=== PATIENT | female | born 1950 | race Caucasian/White ===

== ENCOUNTER 2016-04-27 14:05 | Emergency (ER) | payer MEDICARE, OTHER ==
[~2016-04-27] VITALS: Ht 172.7 cm; Wt 73.5 kg
[~2016-04-27 14:05] MED LIST: DIAZ2TAB
[2016-04-27] MEDS ORDERED: BECL8.7A6 IH (14:22)
[2016-04-27] MEDS ORDERED: ALBU8.5H2 IH (14:22)
--- NOTE | 2016-04-27 16:20 | NUR ---
PT BIB SELF C/O SOB X1 WEEK. STATES "IT FEELS LIKE BRONCHITIS OR STREP" AND "I CAN'T CATCH MY BREATH". RESP EVEN UNLABORED. NAD NOTED. O2 SAT 98% ON RA. SKIN WARM NONDIAPHORETIC. AMBULATORY WITH STEADY GAIT.
[2016-04-27] MEDS ORDERED: IPRATROPIUM NEB FS 0.5 MG/2.5 ML AMPUL.NEB ONE (17:52)
[2016-04-27] MEDS ORDERED: ALBUTEROL FS 2.5 MG/3 ML VIAL.NEB ONE ×2 (17:52→18:41)
[2016-04-27] MEDS ORDERED: predniSONE 20 MG TABLET PO ONE (18:00)
[2016-04-27] MEDS ORDERED: IPRATROPIUM NEB FS 0.5 MG/2.5 ML AMPUL.NEB NEB ONE (18:00)
[2016-04-27] MEDS ORDERED: ALBUTEROL FS 2.5 MG/3 ML VIAL.NEB CONTNEB ONE (18:00)
[2016-04-27] MEDS ORDERED: predniSONE 20 MG TABLET ONE (18:06)
--- NOTE | 2016-04-27 18:13 | NUR ---
BREATHING TX ONGOING. NAD NOTED.
--- NOTE | 2016-04-27 18:58 | NUR ---
PT. VERBALIZED UNDERSTANDING OF AFTERCARE INSTRUCTIONS.Patient discharged to home in stable condition. Written and verbal after care instructions given. Patient verbalizes understanding of instruction.
[2016-04-27 18:59] VITALS: BP 112/94
[2016-04-27] MEDS ORDERED: ALBUTEROL FS 2.5 MG/3 ML VIAL.NEB NEB ONE (19:00)
== END 2016-04-27 19:03 | disposition home or self-care (01) ==
LOC: ER 14:09
DX: J45.901 Unspecified asthma with (acute) exacerbation (principal); J06.9 Acute upper respiratory infection, unspecified; J44.1 Chronic obstructive pulmonary disease with (acute) exacerbation; G62.9 Polyneuropathy, unspecified; F41.9 Anxiety disorder, unspecified
CPT/HCPCS: 71020; 94640 ×3; 99285; A4606; J7512 ×2; Z7610

== ENCOUNTER 2016-05-12 17:11 | Emergency (ER) | payer MEDICARE, OTHER ==
[~2016-05-12] VITALS: Ht 172.7 cm; Wt 70.3 kg
[2016-05-12 17:11] VITALS: BP 121/68
[~2016-05-12 17:11] MED LIST changes: +ALBU8.5H2 IH; +BECL8.7A6 IH
[2016-05-12] MEDS ORDERED: DIAZEPAM 5 MG TABLET ONE (17:55)
[2016-05-12] MEDS ORDERED: DIAZEPAM 10 MG TABLET PO ONE (18:00)
== END 2016-05-12 18:33 | disposition home or self-care (01) ==
LOC: ER 17:13
DX: Z76.0 Encounter for issue of repeat prescription (principal); G40.909 Epilepsy, unspecified, not intractable, without status epilepticus; J45.909 Unspecified asthma, uncomplicated; F10.20 Alcohol dependence, uncomplicated
CPT/HCPCS: A4606; Z7610

== ENCOUNTER 2016-08-04 21:20 | Emergency (ER) | payer MEDICARE, OTHER ==
[~2016-08-04] VITALS: Ht 172.7 cm; Wt 73.5 kg
[2016-08-04] MEDS ORDERED: ALBUTEROL FS 2.5 MG/3 ML VIAL.NEB NEB ONE (22:00)
[2016-08-04] MEDS ORDERED: IPRATROPIUM NEB FS 0.5 MG/2.5 ML AMPUL.NEB NEB ONE (22:00)
[2016-08-04] MEDS ORDERED: IPRATROPIUM NEB FS 0.5 MG/2.5 ML AMPUL.NEB ONE (22:05)
[2016-08-04] MEDS ORDERED: ALBUTEROL FS 2.5 MG/3 ML VIAL.NEB ONE (22:05)
[2016-08-04] MEDS ORDERED: DEXAMETHASONE SOD PHOSPHATE 10 MG/ML VIAL ONE (22:53)
[2016-08-04] MEDS ORDERED: DEXAMETHASONE SOD PHOSPHATE 4 MG/ML VIAL IV ONE (23:00)
--- NOTE | 2016-08-04 23:43 | NUR ---
GAVE REPORT TO CARSON KEEN FOR JOE
--- NOTE | 2016-08-05 00:54 | NUR ---
Assumed D/C care only at this time. Patient discharged to home in stable condition. Written and verbal after care instructions given. Patient verbalizes understanding of instruction. Ambulatory with a steady gait
[2016-08-05 00:55] VITALS: BP 128/67
== END 2016-08-05 00:57 | disposition home or self-care (01) ==
LOC: ER 21:22
DX: J45.901 Unspecified asthma with (acute) exacerbation (principal); J06.9 Acute upper respiratory infection, unspecified; F41.9 Anxiety disorder, unspecified; Z88.1 Allergy status to other antibiotic agents
CPT/HCPCS: 71010-TC; A4606; J1100; Z7610

== ENCOUNTER 2016-08-30 22:44 | Emergency (ER) | payer MEDICARE, OTHER ==
[~2016-08-30] VITALS: Ht 172.7 cm; Wt 74.8 kg
--- NOTE | 2016-08-30 22:50 | NUR ---
TO BED 7 A 66 YO FEMALE BIBSELF WITH C/O ASTHMA ATTACK, GRADUAL ONSET FOR 3 DAYS, WORSE TODAY. ON ROOM AIR, PATIENT IS SATTING AT 96-100%. AFEBRILE. VSS. GOWNED. INITIATED COMFORT MEASURES. AWAITING FOR ER MD MALDONADO.
[2016-08-30] MEDS ORDERED: ALBUTEROL FS 2.5 MG/3 ML VIAL.NEB ONE (23:43)
[2016-08-30] MEDS ORDERED: IPRATROPIUM NEB FS 0.5 MG/2.5 ML AMPUL.NEB ONE (23:49)
[2016-08-31] MEDS ORDERED: ALBUTEROL FS 2.5 MG/3 ML VIAL.NEB NEB ONE
[2016-08-31] MEDS ORDERED: DEXAMETHASONE SOD PHOSPHATE 10 MG/ML VIAL IV ONE
[2016-08-31] MEDS ORDERED: IPRATROPIUM NEB FS 0.5 MG/2.5 ML AMPUL.NEB NEB ONE
--- NOTE | 2016-08-31 | NUR ---
ONGOING BREATHING TREATMENT GIVEN BY RT. ENCOURAGED DEEP BREATHING EXERCISES.
[2016-08-31] MEDS ORDERED: DEXAMETHASONE SOD PHOSPHATE 10 MG/ML VIAL ONE (00:01)
--- NOTE | 2016-08-31 01:04 | NUR ---
Patient discharged to home in stable condition. Written and verbal after care instructions given. Patient verbalizes understanding of instruction. Patient is ambulatory with steady gait, no further complaints.
[2016-08-31 01:05] VITALS: BP 126/72
== END 2016-08-31 01:05 | disposition home or self-care (01) ==
LOC: ER 22:51
DX: J45.901 Unspecified asthma with (acute) exacerbation (principal); Z88.1 Allergy status to other antibiotic agents; F41.9 Anxiety disorder, unspecified
CPT/HCPCS: 94640 ×2; 99284; A4606; J1100; Z7610